=== PATIENT | female | born 1965 | race Caucasian/White ===

== ENCOUNTER 2017-06-14 13:06 | Emergency (ER) | payer OTHER | END 2017-06-14 14:59 | disposition home or self-care (01) | LOC: ER1 13:06 | DX: L02.214 Cutaneous abscess of groin (principal); J45.909 Unspecified asthma, uncomplicated; I10 Essential (primary) hypertension; F17.210 Nicotine dependence, cigarettes, uncomplicated; Z88.2 Allergy status to sulfonamides | CPT/HCPCS: 10060; 87070; 87077; 87186; 87205; 99283 ==